=== PATIENT | female | born 1980 | race Caucasian/White ===

== ENCOUNTER 2016-12-09 15:44 | Emergency (ER) | payer MEDICAID ==
[~2016-12-09] VITALS: Wt 70.0 kg
[~2016-12-09 15:44] MED LIST: ACET500C5 PO
[2016-12-09 15:56] VITALS: Wt 70.0 kg
[2016-12-09] MEDS ORDERED: IBUPROFEN 600 MG TAB PO ONE (18:00)
[2016-12-09 18:02] LABS: URINE BLOOD (Dip) POC Negative (NEGATIVE)
[2016-12-09] MEDS ORDERED: IBUP-1542 PO (18:38)
[2016-12-09] MEDS ORDERED: CEPH-443 PO (18:38)
[2016-12-09] MEDS ORDERED: D-ME473S18 PO (18:38)
--- NOTE | 2016-12-09 18:40 | ERD ---
ER Documentation Chief Complaint Date/Time DATE: 12/09/16 TIME: 18:39 Chief Complaint sore throat and coughing for the past 2 days. mild sob.also dysuria HPI This 36-year-old female presents with multiple complaints. She presents with sore throat, cough and possible tactile fevers. She also claims of dysuria for 2 days. She denies abdominal pain, shortness breath, chest pain, neck stiffness , rashes. ROS All systems reviewed and are negative except as per history of present illness. Medications Home Meds Active Scripts Dextromethorphan Hb-Promethazine Hcl (Promethazine DM Syrup) 473 Ml Syrup, 5 ML PO Q6H Y for COUGH, #4 OZ Prov:ZARIA KEY MD 12/09/16 Ibuprofen* (Motrin*) 600 Mg Tab, 600 MG PO Q6, #15 TAB Prov:ZARIA KEY MD 12/09/16 Cephalexin* (Keflex*) 500 Mg Capsule, 500 MG PO QID for 5 Days, CAP Prov:ZARIA KEY MD 12/09/16 Acetaminophen* (Tylophen*) 500 Mg Capsule, 1 CAP PO Q6H Y for PAIN AND OR ELEVATED TEMP, #20 CAP Prov:BRONWYN BOWIE NP 06/10/15 Allergies Allergies: Coded Allergies: No Known Allergy (Unverified , 06/10/15) PMhx/Soc Hx Alcohol Use: No Hx Substance Use: No Hx Tobacco Use: No Physical Exam Vitals Vital Signs Date Time Temp Pulse Resp B/P Pulse Ox O2 Delivery O2 Flow Rate FiO2 12/09/16 15:56 98.9 89 21 104/58 98 Physical Exam Const: [] Alert, [id number] per Head: Atraumatic Eyes: Normal Conjunctiva ENT: Normal External Ears, Nose and Mouth. Neck: Full range of motion..~ No meningismus. Resp: Clear to auscultation bilaterally Cardio: Regular rate and rhythm, no murmurs Abd: Soft, non tender, non distended. Normal bowel sounds Skin: No petechiae or rashes Back: No midline or flank tenderness Ext: No cyanosis, or edema Neur: Awake and alert Psych: Normal Mood and Affect Results 24 hrs Laboratory Tests Test 12/09/16 18:02 Bedside Urine pH (LAB) 7.0 Bedside Urine Protein (LAB) Negative Bedside Urine Glucose (UA) Negative Bedside Urine Ketones (LAB) Negative Bedside Urine Blood Negative Bedside Urine Nitrite (LAB) Negative Bedside Urine Leukocyte Esterase (L Trace Current Medications Medications (Trade) Dose Ordered Sig/Surekha Route PRN Reason Start Time Stop Time Status Last Admin Dose Admin Ibuprofen (Motrin) 600 mg ONCE ONCE PO 12/09/16 18:00 12/09/16 18:01 DC 12/09/16 18:00 Procedures/MDM Interest trace leukocytes. HCG is negative. Patient presents with URI symptoms suggestive of viral illness. She has signs of UTI and will be treated for this. She will treated with Keflex, ibuprofen promethazine DM.. The patient was stable with no new complaints during the ER course. Clinically, there is no current evidence to suggest meningitis, sepsis, acute abdomen, pneumonia, acute coronary syndrome, pulmonary embolism, or any other emergent condition appearing to require further evaluation or hospitalization. The patient should certainly return for any new or worsening symptoms per the aftercare instructions. They should otherwise follow-up with her primary care doctor for reevaluation this week. Departure Diagnosis: Primary Impression: UTI (urinary tract infection) Urinary tract infection type: acute cystitis Hematuria presence: without hematuria Qualified Code: N30.00 - Acute cystitis without hematuria Additional Impression: URI, acute Condition: Stable Patient Instructions: Understanding Urinary Tract Infections (UTIs), Fever Control (Adult), Uri, Viral, No Abx (Adult) Additional Instructions: Cheque otro vez con valenzuela doctor primario en el proximo farrell or regresa para mas o nueva simptomas. ZARIA KEY MD Dec 09, 2016 18:39
[2016-12-09 18:49] VITALS: BP 120/66; PULSE 76; TEMP 99.3
== END 2016-12-09 18:54 | disposition home or self-care (01) ==
LOC: E/R 15:44 → FTE 18:54
DX: N30.00 Acute cystitis without hematuria (principal); J06.9 Acute upper respiratory infection, unspecified
CPT/HCPCS: 81003; Z7610; 99284

== ENCOUNTER 2017-08-01 10:59 | Emergency (ER) | payer MEDICAID ==
[~2017-08-01] VITALS: Ht 165.1 cm; Wt 67.0 kg
[~2017-08-01 10:59] MED LIST changes: +CEPH-443 PO; +D-ME473S18 PO; +IBUP-1542 PO
[2017-08-01 11:00] VITALS: Ht 165.1 cm; Wt 67.0 kg
[2017-08-01] MEDS ORDERED: NAPR-260 PO (11:45)
[2017-08-01] MEDS ORDERED: TRAM50TA2 PO (11:45)
--- NOTE | 2017-08-01 14:58 | ERD ---
ER Documentation Chief Complaint Chief Complaint THROAT PAIN X 3 WEEKS AND GENERALIZED BODY PAIN HPI 37 yr old female complaining of sore throat with generalized muscle aches. Patient has had mild cough. No fevers. No runny nose. Took Advil. Denies chest pain or shortness of breath. Denies headaches. His abdominal pain. Denies medical problems. NKDA. Surgical history: Denies. Social history: Denies ROS All systems reviewed and are negative except as per history of present illness. Medications Home Meds Active Scripts Tramadol HCl (Tramadol HCl) 50 Mg Tablet, 50 MG PO Q4 Y for PAIN, #20 TAB Prov:ABE DUBOIS PA-C 08/01/17 Naproxen* (Naprosyn*) 500 Mg Tablet, 500 MG PO BID Y for PAIN AND/OR INFLAMMATION, #30 TAB Prov:ABE DUBOIS PA-C 08/01/17 Dextromethorphan Hb-Promethazine Hcl (Promethazine DM Syrup) 473 Ml Syrup, 5 ML PO Q6H Y for COUGH, #4 OZ Prov:ZARIA KEY MD 12/09/16 Ibuprofen* (Motrin*) 600 Mg Tab, 600 MG PO Q6, #15 TAB Prov:ZARIA KEY MD 12/09/16 Cephalexin* (Keflex*) 500 Mg Capsule, 500 MG PO QID for 5 Days, CAP Prov:ZARIA KEY MD 12/09/16 Acetaminophen* (Tylophen*) 500 Mg Capsule, 1 CAP PO Q6H Y for PAIN AND OR ELEVATED TEMP, #20 CAP Prov:BRONWYN BOWIE NP 06/10/15 Allergies Allergies: Coded Allergies: No Known Allergy (Unverified , 06/10/15) PMhx/Soc Medical and Surgical Hx: pt denies Medical Hx, pt denies Surgical Hx Hx Alcohol Use: No Hx Substance Use: No Hx Tobacco Use: No Smoking Status: Never smoker Physical Exam Vitals Vital Signs Date Time Temp Pulse Resp B/P Pulse Ox O2 Delivery O2 Flow Rate FiO2 08/01/17 11:00 97.8 72 18 119/58 100 Physical Exam GENERAL: The patient is well-appearing, well-nourished, in no acute distress HEENT: Atraumatic. Conjunctivae are pink. Pupils equal, round, and reactive to light. There is no scleral icterus. Tympanic membranes clear bilaterally. Oropharynx clear. No nystagmus or photophobia. NECK: C-spine is soft and supple. There is no meningismus. There is no cervical lymphadenopathy. No JVD. No bruits. No goiter. CHEST: Clear to auscultation bilaterally. There are no rales, wheezes or rhonchi. HEART: Regular rate and rhythm. No murmurs, clicks, rubs or gallops. No S3 or S4. EXTREMITIES: Equal pulses bilaterally. There is no peripheral clubbing, cyanosis or edema. No focal swelling or erythema. Full range of motion. Grossly neurovascularly intact. NEUROLOGIC: Alert and oriented. Cranial nerves II through XII intact. Motor strength in all 4 extremities with 5 out of 5 strength. Sensation grossly intact. Normal speech and gait. Babinski negative. DTR 2+ throughout. SKIN: There is no apparent rash or petechiae. The skin is warm and dry. Procedures/MDM MDM: 37-year-old female complaining of sore throat with body aches. Patient's exam is non-concerning and oropharynx does not appear to be bacterial infection. I do not feel that antibiotics are indicated. Patient likely has viral oropharynx infection. Vital signs are stable. Patient is nontoxic- appearing. I do not feel that blood work or imaging is indicated at today's visit. Patient is told if symptoms change or worsen they should return to the ER. All questions answered at discharge. Departure Diagnosis: Primary Impression: Sore throat Condition: Stable Patient Instructions: Self-Care for Sore Throats Additional Instructions: FOLLOW UP WITH YOUR PRIMARY CARE PHYSICIAN TOMORROW.Return to this facility if you are not improving as expected. ABE DUBOIS PA-C Aug 01, 2017 14:58
== END 2017-08-01 11:52 | disposition home or self-care (01) ==
LOC: FTE 10:59
DX: J02.9 Acute pharyngitis, unspecified (principal)
CPT/HCPCS: 99283